=== PATIENT | female | born 1985 | race Two or more races ===

== ENCOUNTER → 2025-09-12 10:58 | Outpatient (BNVA) | payer OTHER, SELFPAY | PROVIDERS: Visit Provider Physician Assistant | DX: M65.841 Other synovitis and tenosynovitis, right hand (principal) | CPT/HCPCS: 29125; 73110; 99204 ==

== ENCOUNTER → 2025-09-25 11:39 | Outpatient (BNVA) | payer OTHER, SELFPAY | PROVIDERS: Visit Provider Physician Assistant | DX: M65.841 Other synovitis and tenosynovitis, right hand (principal) | CPT/HCPCS: 99213 ==

== ENCOUNTER → 2025-10-16 10:39 | Outpatient (BNVA) | payer OTHER, SELFPAY | PROVIDERS: Visit Provider Physician Assistant | DX: M65.841 Other synovitis and tenosynovitis, right hand (principal) | CPT/HCPCS: 99213 ==

== ENCOUNTER → 2025-11-01 10:34 | Outpatient (BNVA) | payer OTHER, SELFPAY | PROVIDERS: Visit Provider Physician Assistant | DX: M65.841 Other synovitis and tenosynovitis, right hand (principal) | CPT/HCPCS: 99213 ==